=== PATIENT | male | born 1995 | race African-American/Black ===

== ENCOUNTER 2019-08-28 12:10 | Emergency (ER) | payer OTHER ==
[~2019-08-28] VITALS: Ht 177.8 cm; Wt 72.6 kg
--- NOTE | 2019-08-28 13:06 | NUR ---
ED Nurse Note:pt to xray
--- NOTE | 2019-08-28 13:28 | NUR ---
ED Nurse Note: back from radiology
[2019-08-28] MEDS ORDERED: IBUPROFEN600 M1 ORAL (13:51)
[2019-08-28] MEDS ORDERED: LIDODERM700 M1 TOPIC (13:51)
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
--- NOTE | 2019-08-28 14:01 | NUR ---
ED Nurse Note: Pt cleared by health care Provider for discharge. DC instructions/prescription was given and explained to pt and verbalized understanding of teachings. All medical devices such as ID band removed. Pt is AAO x4, ambulatory and left with all personal belongings. clinic referral list given
[2019-08-28 14:02] VITALS: BP 125/69
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
== END 2019-08-28 14:06 | disposition home or self-care (01) ==
LOC: EMR 13:50
DX: S22.39XA Fracture of one rib, unspecified side, initial encounter for closed fracture (principal); Y04.8XXA Assault by other bodily force, initial encounter
CPT/HCPCS: 71101; Z7502; 99283